=== PATIENT | male | born 1960 | race Hispanic/Latino ===

== ENCOUNTER 2016-10-27 16:52 | Emergency (ER) | payer MEDICAID ==
[2016-10-27 17:48] VITALS: BMI 28.0
[2016-10-27 17:54] VITALS: TEMP 98.2
[2016-10-27] MEDS ORDERED: Vancomycin 1gm in NS 250ml 1 GM/250 ML BAG IVPB STA (18:37)
--- NOTE | 2016-10-27 18:40 | ED PDOC ---
Arrival/HPI - General Chief Complaint: Abnormal Skin Integrity Time Seen by Provider: 10/27/16 18:37 Historian: Patient - History of Present Illness Narrative History of Present Illness (Text): 10/27/16 18:40 A 56 year old male presents to the emergency department complaining of pain, swelling and erythema to left lower extremity. Patient reports he sustained a cut on his left foot approximately 6-8 weeks ago, which has been healing poorly. Patient was seen by his PMD and has been using topical antibiotics. He later developed swelling and erythema to left lower extremity and became concerned causing him to come in for further evaluation. Patient denies any fever, chills or any other complaints. Time/Duration: Other (6-8 weeks) Symptom Course: Worsening Quality: Other Context: Home Past Medical History - Provider Review Nursing Documentation Reviewed: Yes - Infectious Disease Hx of Infectious Diseases: None - Cardiac Hx Cardiac Disorders: Yes Hx Hypertension: Yes - Pulmonary Hx Respiratory Disorders: No - Neurological Hx Neurological Disorder: No - HEENT Hx HEENT Disorder: No - Renal Hx Renal Disorder: No - Endocrine/Metabolic Hx Endocrine Disorders: No - Hematological/Oncological Hx Blood Disorders: No - Integumentary Hx Dermatological Disorder: No - Musculoskeletal/Rheumatological Hx Musculoskeletal Disorders: Yes Hx Back Pain: Yes Other/Comment: cervical spine pain. sciatica - Gastrointestinal Hx Gastrointestinal Disorders: No - Genitourinary/Gynecological Hx Genitourinary Disorders: No - Psychiatric Hx Psychophysiologic Disorder: No Hx Substance Use: No - Anesthesia Hx Anesthesia: No Hx Anesthesia Reactions: No Hx Malignant Hyperthermia: No Family/Social History - Physician Review Nursing Documentation Reviewed: Yes Family/Social History: No Known Family HX Smoking Status: Current Some Days Smoker Hx Alcohol Use: Yes Hx Substance Use: No Allergies/Home Meds Allergies/Adverse Reactions: Allergies No Known Allergies Allergy (Verified 10/27/16 17:48) Home Medications: Home Meds Medication Instructions Recorded Confirmed Lisinopril [Zestril] 40 mg PO DAILY 05/02/15 10/27/16 Metoprolol Tartrate [Lopressor] 50 mg PO DAILY 05/02/15 10/27/16 Omeprazole [Omeprazole] 1 tab PO DAILY 10/27/16 10/27/16 Physical Exam - Physical Exam Narrative Physical Exam (Text): - Review of Systems Constitutional: Normal. absent: Fatigue, Weight Change, Fevers Eyes: Normal ENT: denies sore throat, denies tristhmus Respiratory: Normal. absent: SOB, Cough, Sputum Cardiovascular: absent: Chest Pain, Palpitations, Syncope Gastrointestinal: Normal. absent: Abdominal Pain, Diarrhea, Nausea, Vomiting Genitourinary: Normal. absent: Dysuria, Frequency, Hematuria, vaginal bleeding Musculoskeletal: Normal. absent: Arthralgias, Back Pain, Neck Pain Skin: (+) Wound on left foot with pain, swelling and erythema to left lower extremity Neurological: absent: Focal Weakness Endocrine: Normal Hemo/Lymphatic: Normal Psychiatric: No suicidal or homicidal ideations Physical exam Patient appears age appropriate in no distress, speaking full sentences without difficulty - Systems Exam Head: Present: Atraumatic, Normocephalic Pupils: Present: PERRL Extroacular Muscles: Present: EOMI Conjunctiva: Present: Normal Mouth: Present: Moist Mucous Membranes Neck: Present: Normal Range of Motion. No: MIDLINE TENDERNESS, Paraspinal Tenderness Respiratory/Chest: Present: Clear to Auscultation, Good Air Exchange. No: Respiratory Distress, Accessory Muscle Use, Tachypneic Cardiovascular: Present: Regular Rate and Rhythm, Normal S1, S2, Peripheal Pulses Present. No: Murmurs Abdomen: Present: Normal Bowel Sounds. No: Tenderness, Distention, Peritoneal Signs, Rebound, Guarding Back: Present: Normal Inspection. No: Midline Tenderness, Paraspinal Tenderness Upper Extremity: Present: Normal Inspection. No: Cyanosis, Edema Lower Extremity: Present: Left lower extremity with more swelling in left ankle compared to right. Redness, Warmth and streaking up left jordan. Area demarcated with marker. Swelling with ulceration around MTP. Neurological: Present: GCS=15, Speech Normal, cranial nerves II through XII fully intact with no cerebellar abnormality, neurosensory fully intact. No focal neurological deficits. Skin: Present: Warm, Dry, Normal Color. No: Rashes Lymphatic: Present: OX3, NI, NC Psychiatric: Present: Alert, Oriented x 3, Normal Insight, Normal Concentration Vital Signs Reviewed: Yes Vital Signs Temp Pulse Resp BP Pulse Ox 10/27/16 20:19 88 16 113/78 99 10/27/16 17:53 98.2 F 108 H 19 111/75 96 Temperature: Afebrile Blood Pressure: Normal Pulse: Tachycardic Respiratory Rate: Normal Appearance: Positive for: Well-Appearing, Non-Toxic, Comfortable Pain Distress: None Mental Status: Positive for: Alert and Oriented X 3 Medical Decision Making ED Course and Treatment: 10/27/16 18:40 Impression: A 56 year old male with ulcerative wound on left foot with pain, swelling and redness to left lower extremity. Differential Diagnosis included but are not limited to: Cellulitis vs. DVT Plan: -- Duplex lower extremity ultrasound -- Labs -- Blood culture -- Toradol and Vancomycin -- Reassess and disposition Progress Notes: 10/27/16 20:05 Spoke with it technical architect, states ultrasound is negative for DVT. 10/27/16 20:06 Hb 18.5, pt has been hyperemic in the past advised to be admitted into the hospital for further w/u pt states he wants to try outpatient therapy and f/u with PMD instead Pt states he understands to return to the ER right away for new or worsening symptoms or for inability to f/u with PMD or specialist as instructed. Patient states that he fully agrees with and understands discharge instructions. States that he agrees with the plan and disposition. Verbalized and repeated discharge instructions and plan. I have given the patient opportunity to ask any additional questions. - Lab Interpretations Lab Results: 10/27/16 19:04 10/27/16 19:04 Lab Results 10/27/16 19:04: Sodium 136, Potassium 3.7, Chloride 95 L, Carbon Dioxide 29, Anion Gap 16, BUN 12, Creatinine 0.7, Est GFR ( Amer) > 60, Est GFR (Non- Af Amer) > 60, Random Glucose 142 H, Calcium 9.1, Total Bilirubin 1.6 H, AST 31 , ALT 40, Alkaline Phosphatase 120, Total Protein 8.5 H, Albumin 4.0, Globulin 4.5, Albumin/Globulin Ratio 0.9 L 10/27/16 19:04: PT 10.8, INR 1.00, APTT 33.3 H 10/27/16 19:04: WBC 8.1, RBC 4.38, Hgb 18.5 H*, Hct 51.3, MCV 117.1 H, MCH 42.2 H, MCHC 36.1, RDW 13.0, Plt Count 81 L, MPV 11.4 H, Gran % 74.6 H, Lymph % (Auto ) 13.2 L, [place] % (Auto) 10.7 H, Eos % (Auto) 1.0 L, Baso % (Auto) 0.5, Gran # 6.05, Lymph # 1.1 L, [place] # 0.9 H, Eos # 0.1, Baso # 0.04, Neutrophils % (Manual ) 72 H, Band Neutrophils % 2, Lymphocytes % (Manual) 15 L, Monocytes % (Manual) 10 H, Eosinophils % (Manual) 1, Platelet Evaluation Low, Macrocytosis (manual) 2 + I have reviewed the lab results: Yes - RAD Interpretation Radiology Orders: 10/27/16 18:38 DUPLEX LOWER EXTRM VEIN LEFT [US] Stat - Medication Orders Current Medication Orders: Discontinued Medications Vancomycin HCl (Vancomycin 1gm) 1 gm in 250 mls @ 133.333 mls/hr IVPB STAT STA PRN Reason: Protocol Stop: 10/27/16 20:29 Last Admin: 10/27/16 20:18 Dose: 133.333 mls/hr Ketorolac Tromethamine (Toradol) 15 mg IVP STAT STA Stop: 10/27/16 18:38 Last Admin: 10/27/16 20:13 Dose: 15 mg - Scribe Statement The provider has reviewed the documentation as recorded by the Tray Wyman Provider Scribe Attestation: All medical record entries made by the Scribpricila were at my direction and personally dictated by me. I have reviewed the chart and agree that the record accurately reflects my personal performance of the history, physical exam, medical decision making, and the department course for this patient. I have also personally directed, reviewed, and agree with the discharge instructions and disposition. Disposition/Present on Arrival - Present on Arrival Any Indicators Present on Arrival: No History of DVT/PE: No History of Uncontrolled Diabetes: No Urinary Catheter: No History of Decub. Ulcer: No History Surgical Site Infection Following: None - Disposition Have Diagnosis and Disposition been Completed?: Yes Diagnosis: Cellulitis Disposition: HOME/ ROUTINE Disposition Time: 20:05 Patient Plan: Discharge Patient Problems: Current Active Problems Problem Status Onset Cellulitis Acute Condition: GOOD Discharge Instructions (ExitCare): Cellulitis (ED) Print Language: MALDIVIAN Additional Instructions: PLEASE RETURN TO THE EMERGENCY DEPARTMENT FOR NEW OR WORSENING SYMPTOMS. RETURN RIGHT AWAY IF YOU CANNOT FOLLOW UP WITH YOUR PRIMARY CARE DOCTOR, CLINIC, OR SPECIALIST IN 1-2 DAYS. Prescriptions: Cephalexin [Keflex] 500 mg PO TID #21 capsule Referrals: Antonio Torres MD [Primary Care Provider] - Follow up with primary Rajani Trujillo DPM [Staff Provider] - Follow up with primary Forms: [employer] (Yoruba)
[2016-10-27 19:38] LABS: BASO # 0.04 K/mm3 (0.0-2.0); BASO % 0.5 % (0.0-3.0); EOS # 0.1 (0.0-0.7); GRAN # 6.05 (1.4-6.5); GRAN % 74.6 % (50.0-68.0); HEMATOCRIT 51.3 % (42.0-52.0); LYMPH # 1.1 (1.2-3.4); LYMPH % 13.2 % (22.0-35.0); MEAN CELL VOLUME 117.1 fl (80.0-105.0); MEAN CORPUSCULAR HEMOGLOBIN 42.2 pg (25.0-35.0); MEAN CORPUSCULAR HGB CONC 36.1 g/dl (31.0-37.0); MEAN PLATELET VOLUME 11.4 fl (7.0-11.0); MONO # 0.9 (0.1-0.6); MONO % 10.7 % (1.0-6.0); PLATELET COUNT 81 10^3/uL (120.0-450.0); WHITE BLOOD COUNT 8.1 10^3/ul (4.5-11.0)
[2016-10-27 19:44] LABS: ALB/GLOB RATIO 0.9 (1.1-1.8); ALKALINE PHOSPHATASE 120 U/L (38-126); ALT/SGPT 40 U/L (7-56); AST/SGOT 31 U/L (17-59); BILIRUBIN,TOTAL 1.6 mg/dL (0.2-1.3); BLOOD UREA NITROGEN 12 mg/dL (7-21); CALCIUM 9.1 mg/dL (8.4-10.5); CARBON DIOXIDE 29 mmol/L (21-33); CHLORIDE 95 mmol/L (98-107); GFR AFRICAN-AMERICAN > 60; GLUCOSE,RANDOM 142 mg/dL (70-110); POTASSIUM 3.7 mmol/L (3.6-5.0); SODIUM 136 mmol/L (132-148); TOTAL PROTEIN 8.5 g/dL (5.8-8.3)
[2016-10-27 19:58] LABS: PARTIAL THROMBOPLASTIN TIME 33.3 Seconds (23.7-30.8)
[2016-10-27 20:20] VITALS: RESP 16
[2016-10-27 20:22] LABS: BAND 2 % (0-2); EOSINOPHIL 1 % (0.0-3.0); NEUTROPHIL 72 % (50.0-70.0); PLATELET ESTIMATE LOW (NORMAL)
[2016-10-27 23:17] VITALS: BP 114/78; PULSE 87; O2SAT 100
--- NOTE | 2016-10-28 14:27 | US ---
PROCEDURE: Left lower extremity venous US HISTORY: Leg pain and swelling. Evaluate for DVT. PHYSICIAN(S): Campbell Lea MD. TECHNIQUE: Duplex sonography and color-flow Doppler with graded compression were used to evaluate the deep venous system of the left lower extremity. The exam is limited by edema. The tibial veins are not well seen. FINDINGS: The visualized deep venous system of the left lower extremity is sonographically normal and compressible. Normal wave forms and augmentation are seen. There is no sonographic evidence for deep venous thrombosis in the visualized segments of the left lower extremity. IMPRESSION: 1. No sonographic evidence for deep venous thrombosis in the visualized segments of the left lower extremity.
== END 2016-10-27 23:16 | disposition home or self-care (01) ==
LOC: ED 16:52
DX: L03.116 Cellulitis of left lower limb (principal)
CPT/HCPCS: 80053; 85025; 85610; 85730; 87040; 93971; 96374; 99283; J1885

== ENCOUNTER 2017-05-05 11:30 | Emergency (ER) | payer MEDICAID ==
[2017-05-05 11:40] VITALS: BMI 27.5
[2017-05-05 11:42] VITALS: RESP 18; TEMP 98
--- NOTE | 2017-05-05 11:46 | ED PDOC ---
Arrival/HPI - General Chief Complaint: ENT Problem Time Seen by Provider: 05/05/17 11:37 Historian: Patient - History of Present Illness Narrative History of Present Illness (Text): 05/05/17 11:46 This 56 yo male with pmh alcohol abuse, presents to this ED c/o nosebleed since this morning. Patient denies nose trauma, dizziness, [place], fever, or similar symptoms in the past. Patient stated he had been trying to stop nosebleed with pressure , with use of gauze, without significant success. Patient admits drinking beer last night. Patient denies trauma, dizziness, fever, dysphagia, sob, cp, or abnormal gait. Time/Duration: Other (see hpi) Context: Home Past Medical History - Provider Review Nursing Documentation Reviewed: Yes - Infectious Disease Hx of Infectious Diseases: None - Cardiac Hx Cardiac Disorders: Yes Hx Hypertension: Yes - Pulmonary Hx Respiratory Disorders: No - Neurological Hx Neurological Disorder: No - HEENT Hx HEENT Disorder: No - Renal Hx Renal Disorder: No - Endocrine/Metabolic Hx Endocrine Disorders: No - Hematological/Oncological Hx Blood Disorders: No - Integumentary Hx Dermatological Disorder: No - Musculoskeletal/Rheumatological Hx Musculoskeletal Disorders: Yes Hx Back Pain: Yes Other/Comment: cervical spine pain. sciatica - Gastrointestinal Hx Gastrointestinal Disorders: No - Genitourinary/Gynecological Hx Genitourinary Disorders: No - Psychiatric Hx Psychophysiologic Disorder: No Hx Substance Use: No - Anesthesia Hx Anesthesia: No Hx Anesthesia Reactions: No Hx Malignant Hyperthermia: No Family/Social History - Physician Review Nursing Documentation Reviewed: Yes Family/Social History: Other (noncontributory) Smoking Status: Heavy Smoker > 10 Cigarettes Daily Hx Alcohol Use: Yes Frequency of alcohol use: Socially Hx Substance Use: No Allergies/Home Meds Allergies/Adverse Reactions: Allergies No Known Allergies Allergy (Verified 10/27/16 17:48) Home Medications: Home Meds Medication Instructions Recorded Confirmed Lisinopril [Zestril] 40 mg PO DAILY 05/02/15 05/05/17 Metoprolol Tartrate [Lopressor] 50 mg PO DAILY 05/02/15 05/05/17 Omeprazole [Omeprazole] 40 mg PO DAILY 10/27/16 05/05/17 Diazepam [Valium] 10 mg PO HS 05/05/17 05/05/17 Naproxen Sodium [Naproxen Sodium 500 mg PO BID 05/05/17 05/05/17 ER] traMADol [Ultram] 1 tab PO QID PRN 05/05/17 05/05/17 Review of Systems - Review of Systems Constitutional: Normal. absent: Fatigue, Weight Change, Fevers Eyes: Normal ENT: Epistaxis Respiratory: Normal Cardiovascular: Normal Gastrointestinal: Normal Genitourinary Male: Normal Musculoskeletal: Normal Skin: Normal Neurological: Normal Endocrine: Normal Hemo/Lymphatic: Normal Psychiatric: Normal Physical Exam Vital Signs Temp Pulse Resp BP Pulse Ox 05/05/17 16:41 98 H 18 111/64 99 05/05/17 11:40 98.0 F 109 H 18 106/77 96 Temperature: Afebrile Blood Pressure: Normal Pulse: Regular Respiratory Rate: Normal Appearance: Positive for: Well-Appearing, Non-Toxic, Comfortable Pain Distress: None Mental Status: Positive for: Alert and Oriented X 3 - Systems Exam Head: Present: Atraumatic, Normocephalic Pupils: Present: PERRL Extroacular Muscles: Present: EOMI Conjunctiva: Present: Normal Mouth: Present: Moist Mucous Membranes Pharnyx: Present: Normal. No: ERYTHEMA, EXUDATE, TONSILS ENLARGED Nose (External): Present: Atraumatic Nose (Internal): Present: Epistaxis, Other (No visible septal hematoma or Foreign Body on either nostril). No: Edematous, Boggy, Rhinorrhea, Purulent Mucous, Septal Deviation, Septal Hematoma Neck: Present: Normal Range of Motion Respiratory/Chest: Present: Clear to Auscultation, Good Air Exchange. No: Respiratory Distress, Accessory Muscle Use, Wheezes Cardiovascular: Present: Regular Rate and Rhythm, Normal S1, S2. No: Murmurs Abdomen: Present: Normal Bowel Sounds. No: Tenderness, Distention, Peritoneal Signs Back: Present: Normal Inspection Upper Extremity: Present: Normal Inspection. No: Cyanosis, Edema Lower Extremity: Present: Normal Inspection. No: Edema Neurological: Present: GCS=15, CN II-XII Intact, Speech Normal Skin: Present: Warm, Dry, Normal Color. No: Rashes Psychiatric: Present: Alert, Oriented x 3, Normal Insight, Normal Concentration Medical Decision Making ED Course and Treatment: 05/05/17 12:12 Patient came c/o b/l nosebleed x 5 hours. Patient is not sure which nostril nosebleed started. Physical exam demonstrates b/l nostril full of blood, but not acute bleeding. No FB was visualized in either nostril. I recommended patient to stay in ED for observation. 05/05/17 13:05 Patient stated having another nose bleed. On revaluation, patient has been having nosebleed both nostril. Right is more than left. Rhinorocket placed on right nostril 05/05/17 16:10 Re-evaluation. Patient feels better. Discussed results and plan with patient who expresses understanding. All questions answered and there is agreement with the plan to discharge home with instructions. Patient stable for discharge. Return if symptoms persist or worsen. Patient was recommended to see Dr. Graves ENT in 1-2 days. To be complaint with antibiotic. He understood the importance to see ENT to reexamined his nose. Patient was recommended not to blow his nose, and to eat and drink cold or room temperature food or drink. To return to ED if symptoms worsen. Re-evaluation Time: 16:15 Reassessment Condition: Re-examined, Improved - Medication Orders Current Medication Orders: Discontinued Medications Cephalexin Monohydrate (Keflex) 500 mg PO STAT STA PRN Reason: Protocol Stop: 05/05/17 16:09 Multivitamins/Vitamin C 10 ml/Thiamine HCl 100 mg/ Folic Acid 1 mg/ Sodium Chloride 1,011.2 mls @ 1,000 mls/hr IV .Q1H1M ONE Stop: 05/05/17 12:46 Last Admin: 05/05/17 12:39 Dose: 1,000 mls/hr eMAR Start Stop Document 05/05/17 12:39 EQ (Rec: 05/05/17 12:40 EQ [id number]) Intravenous Solution Start Date 05/05/17 Start Time 12:39 Lorazepam (Ativan) 1 mg PO ONCE ONE PRN Reason: Protocol Stop: 05/05/17 11:48 Last Admin: 05/05/17 12:11 Dose: 1 mg Oxymetazoline HCl (Afrin 0.05%) 0 ml NS STAT STA Stop: 05/05/17 11:49 Last Admin: 05/05/17 12:12 Dose: 3 spray Comments: adm by LINNETTE Joseph Disposition/Present on Arrival - Present on Arrival Any Indicators Present on Arrival: No History of DVT/PE: No History of Uncontrolled Diabetes: No Urinary Catheter: No History of Decub. Ulcer: No History Surgical Site Infection Following: None - Disposition Have Diagnosis and Disposition been Completed?: Yes Diagnosis: Severe epistaxis Disposition: HOME/ ROUTINE Disposition Time: 16:16 Patient Plan: Discharge Condition: IMPROVED Discharge Instructions (ExitCare): Nosebleeds (DC) Additional Instructions: Call Dr. Graves ENT Office for reevaluation in 1-2 days. Take antibiotic as instructed. Do not blow nose. Drink cold or room temperature bevergae of cold or room temperature food. Return to emergency if nosebleed started again Prescriptions: Cephalexin [cephalexin] 500 mg PO QID #28 cap Referrals: Hemanth Torres MD [Primary Care Provider] - Follow up with primary Andrea Graves DO [Staff Provider] - Follow up with primary Forms: [employer] ([place]ian)
[2017-05-05] MEDS: Oxymetazoline 0.05% Nasal Spray (30 ml) NS STA (12:12)
[2017-05-05] MEDS: Multivitamin (MVI) 10 ML, Thiamine 100 MG, Folic Acid 1 MG in Sodium Chloride 0.9% 1,00... IV ONE (12:39)
[2017-05-05 16:41] VITALS: BP 111/64; PULSE 98; O2SAT 99
== END 2017-05-05 16:44 | disposition home or self-care (01) ==
LOC: ED 11:30
DX: R04.0 Epistaxis (principal)
CPT/HCPCS: 96374; 99283; J3411; J7040

== ENCOUNTER 2017-05-07 14:12 | Inpatient (IN) | payer MEDICAID ==
[2017-05-07 14:46] VITALS: BMI 28.2
--- NOTE | 2017-05-07 15:00 | ED PDOC ---
Arrival/HPI - General Chief Complaint: Dizziness/Lightheaded Time Seen by Provider: 05/07/17 15:00 Historian: Patient - History of Present Illness Narrative History of Present Illness (Text): 05/07/17 15:00 This 56 yo male presents to this Emergency department complaining of feeling tire, and right nose discomfort. Patient was seen in this Emergency department x 2 days ago for epistaxis. Patient had a rhino Rocket nasal packing placed 2 days ago, and given a prescription for ABX. Patient stated he did not get the chance to fill his antibiotics. He admits drinking alcohol daily. Patient feels generalized weakness. Patient made an appointment to see ENT, but it is for 3 days from now. Patient denies fever, sob, cp, abdominal pain, oliver, skin rash, dizziness, or abnormal gait. Time/Duration: Other (see hpi) Context: Home Past Medical History - Provider Review Nursing Documentation Reviewed: Yes - Infectious Disease Hx of Infectious Diseases: None - Cardiac Hx Cardiac Disorders: Yes Hx Hypertension: Yes - Pulmonary Hx Respiratory Disorders: No - Neurological Hx Neurological Disorder: No - HEENT Hx HEENT Disorder: No - Renal Hx Renal Disorder: No - Endocrine/Metabolic Hx Endocrine Disorders: No - Hematological/Oncological Hx Blood Disorders: No - Integumentary Hx Dermatological Disorder: No - Musculoskeletal/Rheumatological Hx Musculoskeletal Disorders: Yes Hx Back Pain: Yes Other/Comment: cervical spine pain. sciatica - Gastrointestinal Hx Gastrointestinal Disorders: No - Genitourinary/Gynecological Hx Genitourinary Disorders: No - Psychiatric Hx Psychophysiologic Disorder: No Hx Substance Use: No - Anesthesia Hx Anesthesia: No Hx Anesthesia Reactions: No Hx Malignant Hyperthermia: No Family/Social History - Physician Review Nursing Documentation Reviewed: Yes Family/Social History: Other (noncontributory) Smoking Status: Heavy Smoker > 10 Cigarettes Daily Hx Alcohol Use: Yes Hx Substance Use: No Allergies/Home Meds Allergies/Adverse Reactions: Allergies No Known Allergies Allergy (Verified 05/07/17 14:42) Home Medications: Home Meds Medication Instructions Recorded Confirmed Lisinopril [Zestril] 40 mg PO DAILY 05/02/15 05/07/17 Metoprolol Tartrate [Lopressor] 50 mg PO DAILY 05/02/15 05/07/17 Omeprazole [Omeprazole] 40 mg PO DAILY 10/27/16 05/07/17 Diazepam [Valium] 10 mg PO HS 05/05/17 05/07/17 Naproxen Sodium [Naproxen Sodium 500 mg PO BID 05/05/17 05/07/17 ER] traMADol [Ultram] 1 tab PO QID PRN 05/05/17 05/07/17 Review of Systems - Review of Systems Constitutional: Fatigue. absent: Weight Change, Fevers Eyes: Normal ENT: Other (right nares packing) Respiratory: Normal. absent: SOB, Cough Cardiovascular: Normal Gastrointestinal: Normal. absent: Abdominal Pain, Nausea, Vomiting Genitourinary Male: Normal Musculoskeletal: Normal Skin: Normal. absent: Rash Neurological: Normal. absent: Headache, Focal Weakness, Gait Changes, Speech Changes, Facial Droop, Disequilibrium, Seizure Endocrine: Normal Hemo/Lymphatic: Normal Psychiatric: Normal Physical Exam Vital Signs Temp Pulse Resp BP Pulse Ox 05/07/17 20:05 78 18 103/65 98 05/07/17 18:40 76 18 116/57 L 97 05/07/17 16:40 79 15 105/65 99 05/07/17 16:16 81 18 101/68 100 05/07/17 15:51 82 20 87/53 L 100 05/07/17 15:28 90 16 90/53 L 96 05/07/17 14:45 97.8 F 108 H 19 68/46 L 95 05/07/17 14:44 97.8 F 104 H 20 68/46 L 95 Temperature: Afebrile Blood Pressure: Normal Pulse: Tachycardic Respiratory Rate: Normal Appearance: Positive for: Well-Appearing, Non-Toxic, Comfortable Pain Distress: None Mental Status: Positive for: Alert and Oriented X 3 - Systems Exam Head: Present: Atraumatic, Normocephalic Pupils: Present: PERRL Extroacular Muscles: Present: EOMI Conjunctiva: Present: Normal Mouth: Present: Moist Mucous Membranes Pharnyx: Present: Normal. No: ERYTHEMA, EXUDATE, Muffled/Hoarse Voice Nose (External): Present: Atraumatic Nose (Internal): Present: Purulent Mucous (visualized after removing rhino rocket). No: Septal Hematoma Neck: Present: Normal Range of Motion. No: Meningeal Signs, MIDLINE TENDERNESS , Paraspinal Tenderness Respiratory/Chest: Present: Clear to Auscultation, Good Air Exchange. No: Respiratory Distress, Accessory Muscle Use, Wheezes, Retracting, Rhonchi Cardiovascular: Present: Regular Rate and Rhythm, Normal S1, S2. No: Murmurs Abdomen: Present: Normal Bowel Sounds. No: Tenderness, Distention, Peritoneal Signs, Rebound, Guarding Back: Present: Normal Inspection. No: CVA Tenderness, Midline Tenderness Upper Extremity: Present: Normal Inspection, Normal ROM, Neurovascularly Intact , Capillary Refill < 2s. No: Cyanosis, Edema Lower Extremity: Present: Normal Inspection. No: Edema Neurological: Present: GCS=15, CN II-XII Intact, Speech Normal, Motor Func Grossly Intact, Normal Sensory Function, Normal Cerebellar Funct, Gait Normal Skin: Present: Warm, Dry, Normal Color. No: Rashes Psychiatric: Present: Alert, Oriented x 3, Normal Insight, Normal Concentration Medical Decision Making ED Course and Treatment: 05/07/17 18:[address] Copeland regarding patient symptoms, with severe septis. We reviewed labs. He recommended Dr. Carrero ENT consult, and to start Rocephin IVP. Dr. Torres is aware patient recently had Unasyn. He agrees with plan for admission. Re-evaluation Time: 18:43 Reassessment Condition: Re-examined, Improving,but remains with symptoms - Lab Interpretations Lab Results: 05/07/17 15:20 05/07/17 14:30 Lab Results 05/07/17 15:20: pO2 38, VBG pH 7.46 H, VBG pCO2 46.0, VBG HCO3 32.7 H, VBG Total CO2 34.1 H, VBG O2 Sat (Calc) 79.6 H, VBG Base Excess 7.7 H, VBG Potassium 3.8, Glucose 175 H, Lactate 2.9 H, FiO2 21.0, Sodium 135.0, Chloride 95.0 L, Venous Blood Potassium 3.8 05/07/17 15:20: PT 11.6, INR 1.02, APTT 28.1 05/07/17 15:20: WBC 13.0 H D, RBC 3.71, Hgb 14.5 D, Hct 41.6 L, MCV 112.1 H D, MCH 39.1 H, MCHC 34.9, RDW 13.9, Plt Count 194, MPV 11.0, Gran % 78.4 H, Lymph % (Auto) 12.8 L, [place] % (Auto) 7.3 H, Eos % (Auto) 1.2 L, Baso % (Auto) 0.3, Gran # 10.22 H, Lymph # (Auto) 1.7, [place] # (Auto) 1.0 H, Eos # (Auto) 0.2, Baso # (Auto) 0.04, ESR 70 H 05/07/17 14:30: Sodium 136, Potassium 3.4 L, Chloride 100, Carbon Dioxide 29, Anion Gap 11, BUN 29 H, Creatinine 0.9, Est GFR ( Amer) > 60, Est GFR ( Non-Af Amer) > 60, Random Glucose 125 H, Calcium 8.2 L, Phosphorus 1.9 L, Magnesium 1.2 L, Total Bilirubin 2.0 H, AST 29, ALT 29, Alkaline Phosphatase 92 , Total Protein 6.6, Albumin 3.0, Globulin 3.7, Albumin/Globulin Ratio 0.8 L I have reviewed the lab results: Yes Interpretation: Abnormal lab values - RAD Interpretation Narrative RAD Interpretations (Text): 05/07/17 16:23 HISTORY: Sepsis Patient COMPARISON: No prior. FINDINGS: LUNGS: No active pulmonary disease. PLEURA: No significant pleural effusion identified, no pneumothorax apparent. CARDIOVASCULAR: Normal. OSSEOUS STRUCTURES: No significant abnormalities. VISUALIZED UPPER ABDOMEN: Normal. OTHER FINDINGS: None. IMPRESSION: No active disease. Radiology Orders: 05/07/17 15:00 CHEST PORTABLE [RAD] Stat - EKG Interpretation Interpreted by ED Physician: Yes (NSR @ [address] changes) Type: 12 lead EKG Comparison: No previous EKG avail. - Medication Orders Current Medication Orders: Acetaminophen (Tylenol 325mg Tab) 650 mg PO Q4H PRN PRN Reason: Fever >100.5 F Sodium Chloride (Sodium Chloride 0.9%) 1,000 mls @ 100 mls/hr IV .Q10H STA Stop: 05/08/17 04:37 Last Admin: 05/07/17 18:59 Dose: 100 mls/hr eMAR Start Stop Document 05/07/17 18:59 SRE (Rec: 05/07/17 18:59 SRE [id number]) Intravenous Solution Start Date 05/07/17 Start Time 18:59 Discontinued Medications Ampicillin Sodium/Sulbactam (Sodium 3 gm/ Sodium Chloride) 100 mls @ 100 mls/ hr IVPB STAT STA PRN Reason: Protocol Stop: 05/07/17 16:03 Last Admin: 05/07/17 15:27 Dose: 100 mls/hr eMAR Start Stop Document 05/07/17 15:27 SRE (Rec: 05/07/17 15:28 SRE [id number]) Intravenous Solution Start Date 05/07/17 Start Time 15:28 End Date 05/07/17 End time 16:30 Total Infusion Time 62 Sodium Chloride (Sodium Chloride 0.9%) 2,000 mls @ 999 mls/hr IV .Q2H1M STA Stop: 05/07/17 17:06 Last Admin: 05/07/17 15:27 Dose: 999 mls/hr eMAR Start Stop Document 05/07/17 15:27 SRE (Rec: 05/07/17 15:27 SRE [id number]) Intravenous Solution Start Date 05/07/17 Start Time 15:15 End Date 05/07/17 End time 16:15 Total Infusion Time 60 Sodium Chloride (Sodium Chloride 0.9%) 1,000 mls @ 999 mls/hr IV .Q1H1M STA Stop: 05/07/17 17:13 Last Admin: 05/07/17 16:27 Dose: 999 mls/hr eMAR Start Stop Document 05/07/17 16:27 SRE (Rec: 05/07/17 16:28 SRE [id number]) Intravenous Solution Start Date 05/07/17 Start Time 16:28 End Date 05/07/17 End time 17:30 Total Infusion Time 62 Ceftriaxone Sodium (Rocephin 1 Gram Ivpb) 1 gm in 100 mls @ 200 mls/hr IVPB STAT STA PRN Reason: Protocol Stop: 05/07/17 19:09 Last Admin: 05/07/17 18:54 Dose: 200 mls/hr eMAR Start Stop Document 05/07/17 18:54 SRE (Rec: 05/07/17 18:55 SRE [id number]) Intravenous Solution Start Date 05/07/17 Start Time 18:40 End Date 05/07/17 End time 19:20 Total Infusion Time 40 Disposition/Present on Arrival - Present on Arrival Any Indicators Present on Arrival: No History of DVT/PE: No History of Uncontrolled Diabetes: No Urinary Catheter: No History of Decub. Ulcer: No History Surgical Site Infection Following: None - Disposition Have Diagnosis and Disposition been Completed?: Yes Diagnosis: Severe sepsis, Nostril infection Disposition: HOSPITALIZED Disposition Time: 18:45 Patient Plan: Admission Patient Problems: Current Active Problems Problem Status Onset Severe sepsis Acute Nostril infection Acute Condition: STABLE
[2017-05-07] MEDS ORDERED: Sodium Chloride 0.9% 2,000 ML IV STA (15:06)
--- NOTE | 2017-05-07 15:52 | RAD ---
HISTORY: Sepsis Patient COMPARISON: No prior. FINDINGS: LUNGS: No active pulmonary disease. PLEURA: No significant pleural effusion identified, no pneumothorax apparent. CARDIOVASCULAR: Normal. OSSEOUS STRUCTURES: No significant abnormalities. VISUALIZED UPPER ABDOMEN: Normal. OTHER FINDINGS: None. IMPRESSION: No active disease.
[2017-05-07 16:05] LABS: BASO # 0.04 K/mm3 (0.0-2.0); BASO % 0.3 % (0.0-3.0); EOS # 0.2 (0.0-0.7); EOS % 1.2 % (1.5-5.0); GRAN # 10.22 (1.4-6.5); GRAN % 78.4 % (50.0-68.0); HEMOGLOBIN 14.5 g/dL (14.0-18.0); LYMPH # 1.7 (1.2-3.4); LYMPH % 12.8 % (22.0-35.0); MEAN CELL VOLUME 112.1 fl (80.0-105.0); MEAN CORPUSCULAR HEMOGLOBIN 39.1 pg (25.0-35.0); MEAN CORPUSCULAR HGB CONC 34.9 g/dl (31.0-37.0); MONO % 7.3 % (1.0-6.0); RBC 3.71 10^6/uL (3.5-6.1); RED CELL DISTRIBUTION WIDTH 13.9 % (11.5-14.5); VENOUS BLOOD GAS BASE EXCESS 7.7 mmol/L (0.0-2.0); VENOUS BLOOD GAS PO2 38 mm/Hg (30-55); VENOUS BLOOD PH 7.46 (7.32-7.43)
[2017-05-07] MEDS ORDERED: Sodium Chloride 0.9% 1,000 ML IV STA ×2 (16:13→18:38)
[2017-05-07 16:26] LABS: INR 1.02 (0.93-1.08); PARTIAL THROMBOPLASTIN TIME 28.1 Seconds (25.1-36.5); PROTHROMBIN TIME 11.6 SECONDS (9.4-12.5)
[2017-05-07 16:55] LABS: ALB/GLOB RATIO 0.8 (1.1-1.8); CALCIUM 8.2 mg/dL (8.4-10.5); GFR AFRICAN-AMERICAN > 60; GFR NON-AFRICAN AMERICAN > 60
[2017-05-07 16:56] LABS: ALT/SGPT 29 U/L (7-56); AST/SGOT 29 U/L (17-59); BLOOD UREA NITROGEN 29 mg/dL (7-21)
[2017-05-07] MEDS ORDERED: cefTRIAXone 1 gm 1 GM/100 ML BAG IVPB STA (18:40)
[2017-05-07 19:10] LABS: URINE BILIRUBIN NEGATIVE (NEGATIVE); URINE BLOOD NEGATIVE (NEGATIVE); URINE GLUCOSE (UA) NEGATIVE (NEGATIVE); URINE LEUKOCYTE ESTERASE NEGATIVE Leu/uL (NEGATIVE); URINE PROTEIN TRACE mg/dL (<30 mg/dL)
[2017-05-07 19:12] LABS: URINE APPEARANCE CLEAR (CLEAR); URINE COLOR YELLOW (YELLOW)
[2017-05-07 19:17] LABS: VENOUS BLOOD GAS BASE EXCESS 6.3 mmol/L (0.0-2.0); VENOUS BLOOD GAS PO2 43 mm/Hg (30-55); VENOUS BLOOD PH 7.41 (7.32-7.43)
[2017-05-07 19:18] LABS: URINE RBC 0 - 2 /hpf (0-2); URINE WBC 0 - 2 /hpf (0-6)
[2017-05-07] MEDS: Dextrose 5%/0.45% NS 1,000 ML IV SCH (23:35)
[2017-05-08] MEDS: Pantoprazole 40 mg EC Tab PO SCH (05:33)
[2017-05-08 07:31] LABS: BASO # 0.04 K/mm3 (0.0-2.0); BASO % 0.5 % (0.0-3.0); EOS # 0.3 (0.0-0.7); EOS % 4.1 % (1.5-5.0); GRAN # 4.3 (1.4-6.5); GRAN % 55.5 % (50.0-68.0); LYMPH # 2.4 (1.2-3.4); LYMPH % 31.4 % (22.0-35.0); MEAN CELL VOLUME 112.9 fl (80.0-105.0); MEAN CORPUSCULAR HEMOGLOBIN 38.3 pg (25.0-35.0); MEAN PLATELET VOLUME 10.2 fl (7.0-11.0); MONO # 0.7 (0.1-0.6); MONO % 8.5 % (1.0-6.0); RBC 2.87 10^6/uL (3.5-6.1); RED CELL DISTRIBUTION WIDTH 13.8 % (11.5-14.5); WHITE BLOOD COUNT 7.8 10^3/ul (4.5-11.0)
[2017-05-08 07:51] LABS: ALB/GLOB RATIO 0.8 (1.1-1.8); ALBUMIN 2.6 g/dL (3.0-4.8); ALT/SGPT 34 U/L (7-56); AST/SGOT 53 U/L (17-59); BLOOD UREA NITROGEN 19 mg/dL (7-21); CALCIUM 8.2 mg/dL (8.4-10.5); GFR AFRICAN-AMERICAN > 60; GFR NON-AFRICAN AMERICAN > 60
[2017-05-08] MEDS: Naproxen 550 mg Tab PO SCH ×2 (09:30→17:53)
[2017-05-08] MEDS: cefTRIAXone 1 gm 1 GM/100 ML BAG IVPB SCH (09:31)
--- NOTE | 2017-05-08 10:37 | CARD ---
APPROVED REPORT EKG Measurement Heart [id number] <Conclusion> Normal sinus rhythm Septal infarct, age undetermined NSSTW changes, new
[2017-05-08] MEDS: Dextrose 5%/0.45% NS 1,000 ML IV SCH (11:38)
[2017-05-08] MEDS: Oxymetazoline 0.05% Nasal Spray (30 ml) NS SCH (17:45)
[2017-05-09] MEDS: Pantoprazole 40 mg EC Tab PO SCH (05:58)
[2017-05-09] MEDS: Oxymetazoline 0.05% Nasal Spray (30 ml) NS SCH ×2 (05:59→17:44)
[2017-05-09] MEDS: cefTRIAXone 1 gm 1 GM/100 ML BAG IVPB SCH (09:32)
[2017-05-09] MEDS: Naproxen 550 mg Tab PO SCH ×2 (09:50→17:43)
[2017-05-10] MEDS: Pantoprazole 40 mg EC Tab PO SCH (06:19)
[2017-05-10 06:24] VITALS: O2SAT 99
[2017-05-10] MEDS: Oxymetazoline 0.05% Nasal Spray (30 ml) NS SCH ×2 (06:52→18:07)
[2017-05-10] MEDS: Naproxen 550 mg Tab PO SCH ×2 (09:21→18:30)
[2017-05-10] MEDS: cefTRIAXone 1 gm 1 GM/100 ML BAG IVPB SCH (09:25)
[2017-05-10 09:48] LABS: BASO # 0.05 K/mm3 (0.0-2.0); BASO % 0.9 % (0.0-3.0); EOS # 0.4 (0.0-0.7); EOS % 7.8 % (1.5-5.0); GRAN # 3.14 (1.4-6.5); GRAN % 55.4 % (50.0-68.0); LYMPH # 1.6 (1.2-3.4); LYMPH % 28.3 % (22.0-35.0); MEAN CELL VOLUME 114.4 fl (80.0-105.0); MEAN CORPUSCULAR HEMOGLOBIN 37.8 pg (25.0-35.0); MEAN PLATELET VOLUME 10.5 fl (7.0-11.0); MONO # 0.4 (0.1-0.6); MONO % 7.6 % (1.0-6.0); RBC 2.91 10^6/uL (3.5-6.1); RED CELL DISTRIBUTION WIDTH 13.1 % (11.5-14.5); WHITE BLOOD COUNT 5.7 10^3/ul (4.5-11.0)
[2017-05-10 10:00] LABS: ALB/GLOB RATIO 0.9 (1.1-1.8); ALBUMIN 3.1 g/dL (3.0-4.8); ALT/SGPT 88 U/L (7-56); AST/SGOT 90 U/L (17-59); BLOOD UREA NITROGEN 16 mg/dL (7-21); CALCIUM 9.2 mg/dL (8.4-10.5); GFR AFRICAN-AMERICAN > 60; GFR NON-AFRICAN AMERICAN > 60
[2017-05-10 12:30] VITALS: BP 98/58; PULSE 62; RESP 18; TEMP 97.5
--- NOTE | 2017-05-13 21:28 | PN ---
DATE: 05/08/2017 SUBJECTIVE: This patient is a 56-year-old male with a history of hypertension, who was admitted with epistaxis and sepsis yesterday. When seen today, he is awake, alert and oriented. He is feeling high. He did complain that his nose did bleed slightly overnight again and he is awaiting to be evaluated by ENT. Physical exam is unchanged. Vital signs are stable. LABORATORY STUDY: Shows the total bilirubin is 1.8, white blood cell count is now normal at 7.8, it was 13.0 yesterday. Hemoglobin and hematocrit are 11.0 and 32.4. His potassium is 3.4, sodium is 137, blood urea nitrogen is 19, creatinine 0.7. EKG showed regular sinus rhythm with a possible old septal infarct. Chest x-ray showed no acute disease. We are continuing to follow the patient. Hemanth Torres MD
--- NOTE | 2017-05-13 21:32 | PN ---
DATE: 05/09/2017 DAILY PROGRESS NOTE SUBJECTIVE: The patient is a 56-year-old male with a history of hypertension, who was admitted two days ago with sepsis and right-sided epistaxis. He has been treated by I.D. Today, he was seen by Dr. Carrero, who cauterized some bleeding sites in his left nostril. His white cell counts have been normalized as of yesterday. His vital signs are stable. His urine and blood cultures have both been negative. The patient is awake, alert, and oriented. His physical examination is negative; however, he does say that at night, he repeated to have nosebleeds. He relates that Dr. Carrero cauterized two areas of bleeding; however, there was a third one that he apparently could not reach safely and therefore, this was not cauterized and the patient is complaining that he is still having nosebleeds occasionally. He was reassured that this will heal and we are planning discharge to home in the morning. Hemanth Torres MD [facility]
--- NOTE | 2017-05-14 01:12 | HP ---
HISTORY OF PRESENT ILLNESS: The patient is a 56-year-old male who presents to the emergency room complaining of weakness and epistaxis. He was seen 2 days earlier for a nosebleed. A Rhino Rocket nasal packing was placed and he was given a prescription for antibiotics. However, the patient did not have a chance to get his antibiotics filled. He admits to drinking alcohol daily. Still complaining of generalized weakness and therefore returned to the emergency room with repeated nosebleeds. He apparently needs an appointment to see ENT; however, his appointment is in 3 days. He is known to have a history of hypertension. He has chronic back pain, chronic cervical spine pain. SOCIAL HISTORY: He smokes about a pack of cigarettes a day. Drinks alcohol regularly. ALLERGIES: HE HAS NO KNOWN MEDICAL ALLERGIES. MEDICATIONS: At the time of admission, he was taking lisinopril 40 mg daily, metoprolol tartrate 50 mg daily, omeprazole 40 mg daily, diazepam 10 mg at bedtime, naproxen 500 mg twice a day and tramadol 50 mg four times a day. PHYSICAL EXAMINATION: GENERAL: He is awake, alert and oriented. VITAL SIGNS: His blood pressure is 68/46, heart rate is 104. He is afebrile at 97.8 degrees Fahrenheit. HEENT: Examination of the head, eyes, ears, nose, and throat shows signs of recent nosebleed on the right. NECK: Supple with no lymphadenopathy. LUNGS: Clear to auscultation and percussion. HEART: Regular. No murmurs are appreciated. ABDOMEN: Soft, nontender with no organomegaly. EXTREMITIES: Free of cyanosis, clubbing or edema. NEUROLOGIC: The patient is intact. LABORATORY DATA: His white blood cell count is 13.0, hemoglobin and hematocrit are 14.5 and 41.6 respectively. Sodium is 136, potassium is 3.4, blood urea nitrogen is 29, creatinine 0.9, and non-fasting glucose is 128. Magnesium is low at 1.2, phosphorus is low at 1.9, and total bilirubin is 2.0. Alkaline phosphatase, AST and ALT are all normal. ASSESSMENT AND PLAN: So the patient is admitted with diagnoses of sepsis, epistaxis. Consultation from Dr. Carrero, hvac specialist, is requested and the patient will be re-evaluated in the morning. Hemanth Torres MD [facility] # [id number]
--- NOTE | 2017-05-14 06:07 | DS ---
HOSPITAL COURSE: The patient is a 56-year-old male with a history of chronic back pain, neck pain, sciatica who was admitted to [facility] three days ago with a diagnosis of sepsis and epistaxis. The patient was seen by Dr. Carrero, the Ear, Nose and Throat specialist who cauterized two sites of bleeding in his right nostril. The patient was treated with Rocephin, and his white blood cell count came down from 13; this morning it was 5.7, hemoglobin and hematocrit of 11.0 and 33.3. Serum chemistries are unremarkable. PHYSICAL EXAMINATION: VITAL SIGNS: Vital signs are stable. GENERAL: The patient when seen is awake, alert and oriented. LUNGS: Clear. HEART: Regular. ABDOMEN: Soft. There is no obvious nose bleed at this time. However, the patient continues to complain of every night during his hospital stay, there has been some nose bleeding starting up again. The patient was reassured that this could be treated as an outpatient. He is instructed to followup with Dr. Carrero post discharge. Local [facility] was called with a prescription for Keflex 500 mg, the patient to take four times a day for infection in the nares and sinuses, and the patient is discharged to home in improved condition. FINAL DIAGNOSES: 1. Sepsis. 2. Epistaxis. 3. Hypertension. 4. Alcohol abuse. 5. Tobacco abuse. Hemanth Torres MD
== END 2017-05-10 20:39 | disposition home or self-care (01) | DRG 901 ==
LOC: ED 14:12 → ERH 18:28 → 3RSO 21:35
PROVIDERS: ADMIT Internal Medicine; ATTEND Internal Medicine
DX: A41.9 Sepsis, unspecified organism (principal); R04.0 Epistaxis; F10.10 Alcohol abuse, uncomplicated; I10 Essential (primary) hypertension; G89.29 Other chronic pain; M54.9 Dorsalgia, unspecified; F17.210 Nicotine dependence, cigarettes, uncomplicated

== ENCOUNTER 2017-05-11 05:39 | Emergency (ER) | payer MEDICAID ==
[2017-05-11 05:46] VITALS: BMI 26.6
[2017-05-11 05:53] VITALS: BP 113/78; PULSE 97; RESP 17; TEMP 98; O2SAT 95
--- NOTE | 2017-05-11 06:04 | ED PDOC ---
Arrival/HPI - General Chief Complaint: ENT Problem Time Seen by Provider: 05/11/17 05:47 Historian: Patient - History of Present Illness Narrative History of Present Illness (Text): 05/11/17 06:02 A 56 year old male was brought in by EMS to the emergency department complaining of right nostril nosebleed. Patient reported to the emergency department four days ago for nosebleed, right nares infection and was admitted to the hospital. Patient was recently released from hospital as inpatient for nosebleed. Patient's nosebleed was treated, cauterized. Reports right nostril was bleeding an hour ago and couldn't stop it. Symptom Onset: Sudden Symptom Course: Unchanged Activities at Onset: Rest Context: Home Past Medical History - Provider Review Nursing Documentation Reviewed: Yes - Infectious Disease Hx of Infectious Diseases: None - Cardiac Hx Cardiac Disorders: Yes Hx Hypertension: Yes - Pulmonary Hx Respiratory Disorders: No - Neurological Hx Neurological Disorder: No - HEENT Hx HEENT Disorder: No - Renal Hx Renal Disorder: No - Endocrine/Metabolic Hx Endocrine Disorders: No - Hematological/Oncological Hx Blood Disorders: No - Integumentary Hx Dermatological Disorder: No - Musculoskeletal/Rheumatological Hx Musculoskeletal Disorders: Yes Hx Back Pain: Yes Hx Falls: No Other/Comment: cervical spine pain. sciatica - Gastrointestinal Hx Gastrointestinal Disorders: No - Genitourinary/Gynecological Hx Genitourinary Disorders: No - Psychiatric Hx Psychophysiologic Disorder: No Hx Substance Use: No - Anesthesia Hx Anesthesia: No Hx Anesthesia Reactions: No Hx Malignant Hyperthermia: No Family/Social History - Physician Review Nursing Documentation Reviewed: Yes Family/Social History: No Known Family HX Smoking Status: Light Smoker < 10 Cigarettes Daily Hx Alcohol Use: Yes Hx Substance Use: No Allergies/Home Meds Allergies/Adverse Reactions: Allergies No Known Allergies Allergy (Verified 05/11/17 05:47) Home Medications: Home Meds Medication Instructions Recorded Confirmed Lisinopril [Zestril] 40 mg PO DAILY 05/02/15 05/11/17 Metoprolol Tartrate [Lopressor] 50 mg PO DAILY 05/02/15 05/11/17 Omeprazole [Omeprazole] 40 mg PO DAILY 10/27/16 05/11/17 Diazepam [Valium] 10 mg PO HS 05/05/17 05/11/17 Naproxen Sodium [Naproxen Sodium 500 mg PO BID 05/05/17 05/11/17 ER] traMADol [Ultram] 1 tab PO QID PRN 05/05/17 05/11/17 Cephalexin [cephalexin] 500 mg PO QID 05/10/17 05/11/17 Review of Systems - Physician Review All systems were reviewed & negative as marked: Yes - Review of Systems Constitutional: absent: Fevers ENT: Other (right nostril nosebleed) Physical Exam Vital Signs Reviewed: Yes Vital Signs Temp Pulse Resp BP Pulse Ox 05/11/17 05:52 98.0 F 97 H 17 113/78 95 Temperature: Afebrile Blood Pressure: Normal Pulse: Regular Respiratory Rate: Normal Appearance: Positive for: Well-Appearing, Non-Toxic, Comfortable Pain Distress: None Mental Status: Positive for: Alert and Oriented X 3 - Systems Exam Head: Present: Atraumatic, Normocephalic Pupils: Present: PERRL Extroacular Muscles: Present: EOMI Conjunctiva: Present: Normal Mouth: Present: Moist Mucous Membranes Nose (Internal): Present: No Active Bleeding Neck: Present: Normal Range of Motion Respiratory/Chest: Present: Clear to Auscultation, Good Air Exchange. No: Respiratory Distress, Accessory Muscle Use Cardiovascular: Present: Regular Rate and Rhythm, Normal S1, S2. No: Murmurs Abdomen: Present: Normal Bowel Sounds. No: Tenderness, Distention, Peritoneal Signs Back: Present: Normal Inspection Upper Extremity: Present: Normal Inspection. No: Cyanosis, Edema Lower Extremity: Present: Normal Inspection. No: Edema Neurological: Present: GCS=15, CN II-XII Intact, Speech Normal Skin: Present: Warm, Dry, Normal Color. No: Rashes Psychiatric: Present: Alert, Oriented x 3, Normal Insight, Normal Concentration Medical Decision Making ED Course and Treatment: 05/11/17 06:01 Impression: A 56 year old male with right nostril nosebleed. Plan: -- labs -- Reassess and disposition Prior Visits: Notes and results from previous visits were reviewed. Patient was last seen in the emergency department on 05/07/17 for evaluation of right nose discomfort. Patient was admitted to the hospital for severe sepsis and nostril infection. Progress Notes: No active bleeding, patient blew out a clot. Placed a 7.5 cm anterior, posterior balloon, inflated with 8 cc, which stopped the bleeding. 05/11/17 06:38 Had to go up to 13 cc air to control the bleeding. H/H Stable Case discussed with patient's primary care doctor- [facility] FOLLOW UP WITH DANIELLE PROCTOR CANDLE MOLDER - Lab Interpretations Lab Results: 05/11/17 06:04 Lab Results 05/11/17 06:04: Blood Type Pending, Antibody Screen Pending, BBK History Checked No verified bt 05/11/17 06:04: PT 12.6 H, INR 1.09 H 05/11/17 06:04: WBC 7.2 D, RBC 3.05 L, Hgb 11.7 L, Hct 33.9 L, MCV 111.1 H D, MCH 38.4 H, MCHC 34.5, RDW 13.0, Plt Count 178, MPV 10.5, Gran % 56.1, Lymph % ( Auto) 27.6, [place] % (Auto) 7.2 H, Eos % (Auto) 8.4 H, Baso % (Auto) 0.7, Gran # 4.03, Lymph # (Auto) 2.0, [place] # (Auto) 0.5, Eos # (Auto) 0.6, Baso # (Auto) 0.05 I have reviewed the lab results: Yes - Medication Orders Current Medication Orders: Discontinued Medications Hydromorphone HCl (Dilaudid) 1 mg IVP STAT STA Stop: 05/11/17 06:19 Ondansetron HCl (Zofran Inj) 8 mg IVP STAT STA Stop: 05/11/17 06:19 - Scribe Statement The provider has reviewed the documentation as recorded by the Tray Gilliland Provider Scribe Attestation: All medical record entries made by the Tray were at my direction and personally dictated by me. I have reviewed the chart and agree that the record accurately reflects my personal performance of the history, physical exam, medical decision making, and the department course for this patient. I have also personally directed, reviewed, and agree with the discharge instructions and disposition. Disposition/Present on Arrival - Present on Arrival Any Indicators Present on Arrival: No History of DVT/PE: No History of Uncontrolled Diabetes: No Urinary Catheter: No History of Decub. Ulcer: No History Surgical Site Infection Following: None - Disposition Have Diagnosis and Disposition been Completed?: Yes Diagnosis: Epistaxis Disposition: HOME/ ROUTINE Disposition Time: 06:40 Patient Plan: Discharge Condition: GOOD Discharge Instructions (ExitCare): Nosebleeds (DC) Additional Instructions: Mr Mayers- I spoke with Dr. Torres. He wants you to see ENT in the office today. Leave the baloon in place untiil they see you in the office. If you have any problems just come back to us. Best- Dr. Srini Wang Forms: [employer] (Czech)
[2017-05-11 06:18] LABS: BASO # 0.05 K/mm3 (0.0-2.0); BASO % 0.7 % (0.0-3.0); EOS # 0.6 (0.0-0.7); EOS % 8.4 % (1.5-5.0); GRAN # 4.03 (1.4-6.5); GRAN % 56.1 % (50.0-68.0); HEMOGLOBIN 11.7 g/dL (14.0-18.0); LYMPH % 27.6 % (22.0-35.0); MEAN CORPUSCULAR HEMOGLOBIN 38.4 pg (25.0-35.0); MEAN CORPUSCULAR HGB CONC 34.5 g/dl (31.0-37.0); MEAN PLATELET VOLUME 10.5 fl (7.0-11.0); MONO # 0.5 (0.1-0.6); MONO % 7.2 % (1.0-6.0); RBC 3.05 10^6/uL (3.5-6.1); WHITE BLOOD COUNT 7.2 10^3/ul (4.5-11.0)
[2017-05-11] MEDS ORDERED: HYDROmorphone 0.5 mg/0.5 ml ISec IVP STA (06:18)
[2017-05-11 06:27] LABS: INR 1.09 (0.93-1.08); PROTHROMBIN TIME 12.6 SECONDS (9.4-12.5)
[2017-05-11 06:28] LABS: MEAN CELL VOLUME 111.1 fl (80.0-105.0)
[2017-05-11 07:11] LABS: ALB/GLOB RATIO 0.8 (1.1-1.8); ALBUMIN 3.4 g/dL (3.0-4.8); ALT/SGPT 95 U/L (7-56); AST/SGOT 90 U/L (17-59); BLOOD UREA NITROGEN 10 mg/dL (7-21); CALCIUM 9.6 mg/dL (8.4-10.5); GFR AFRICAN-AMERICAN > 60; GFR NON-AFRICAN AMERICAN > 60
== END 2017-05-11 06:15 | disposition home or self-care (01) ==
LOC: ED 05:39
DX: R04.0 Epistaxis (principal); F17.210 Nicotine dependence, cigarettes, uncomplicated; I10 Essential (primary) hypertension

== ENCOUNTER 2017-05-11 09:19 | Emergency (ER) | payer MEDICAID ==
[2017-05-11 09:25] VITALS: BMI 29.8
[2017-05-11 09:27] VITALS: RESP 18
[2017-05-11 12:42] VITALS: BP 125/87; PULSE 99; TEMP 97.9
--- NOTE | 2017-05-11 12:42 | ED PDOC ---
Arrival/HPI - General Chief Complaint: ENT Problem Time Seen by Provider: 05/11/17 09:41 - History of Present Illness Narrative History of Present Illness (Text): 56 y/o M p/w epistaxis. Patient was in this ED overnight with same complaint. Had recently been discharged from this hospital with the same complaint. Patient saw ENT while inpatient, had cauterization, had recurrent bleeding overnight, ENT who was consulted stated patient can see him in office and PMD discharged patient. Last night, patient had rhino rocket placed and case was discussed with PMD who recommended against admission and follow up with ENT in office. Patient was discharged from ED, and on the way to transport office for ride to ENT office, patient had recurrent epistaxis in lobby and was brought back to the ED. Patient's blood pressure has been stable and Hb checked overnight stable. Past Medical History - Infectious Disease Hx of Infectious Diseases: None - Cardiac Hx Cardiac Disorders: Yes Hx Hypertension: Yes - Pulmonary Hx Respiratory Disorders: No - Neurological Hx Neurological Disorder: No - HEENT Hx HEENT Disorder: No - Renal Hx Renal Disorder: No - Endocrine/Metabolic Hx Endocrine Disorders: No - Hematological/Oncological Hx Blood Disorders: No - Integumentary Hx Dermatological Disorder: No - Musculoskeletal/Rheumatological Hx Musculoskeletal Disorders: Yes Hx Back Pain: Yes Hx Falls: No Other/Comment: cervical spine pain. sciatica - Gastrointestinal Hx Gastrointestinal Disorders: No - Genitourinary/Gynecological Hx Genitourinary Disorders: No - Psychiatric Hx Psychophysiologic Disorder: No Hx Substance Use: No - Anesthesia Hx Anesthesia: No Hx Anesthesia Reactions: No Hx Malignant Hyperthermia: No Family/Social History Family/Social History: Unknown Family HX Smoking Status: Light Smoker < 10 Cigarettes Daily Hx Alcohol Use: Yes Hx Substance Use: No Allergies/Home Meds Allergies/Adverse Reactions: Allergies No Known Allergies Allergy (Verified 05/11/17 09:25) Home Medications: Home Meds Medication Instructions Recorded Confirmed Lisinopril [Zestril] 40 mg PO DAILY 05/02/15 05/11/17 Metoprolol Tartrate [Lopressor] 50 mg PO DAILY 05/02/15 05/11/17 Omeprazole [Omeprazole] 40 mg PO DAILY 10/27/16 05/11/17 Diazepam [Valium] 10 mg PO HS 05/05/17 05/11/17 Naproxen Sodium [Naproxen Sodium 500 mg PO BID 05/05/17 05/11/17 ER] traMADol [Ultram] 1 tab PO QID PRN 05/05/17 05/11/17 Cephalexin [cephalexin] 500 mg PO QID 05/10/17 05/11/17 Review of Systems - Review of Systems Cardiovascular: absent: Chest Pain Gastrointestinal: absent: Vomiting Physical Exam - Physical Exam Narrative Physical Exam (Text): Gen: NAD. Patient sitting in stretcher, occasionally spitting clots into bucket. Head: NC Eyes: No scleral icterus ENT: R nare with rhino rocket in place Neuro: Alert Vital Signs Temp Pulse Resp BP Pulse Ox 05/11/17 12:40 97.9 F 99 H 18 125/87 97 05/11/17 09:25 97.8 F 102 H 18 121/66 100 Medical Decision Making ED Course and Treatment: Patient given voucher for taxi ride directly to ENT office [address] Graves ENT senior executive compensation analyst states patient can come directly to his office now. Disposition/Present on Arrival - Present on Arrival Any Indicators Present on Arrival: No History of DVT/PE: No History of Uncontrolled Diabetes: No Urinary Catheter: No History of Decub. Ulcer: No History Surgical Site Infection Following: None - Disposition Have Diagnosis and Disposition been Completed?: Yes Diagnosis: Epistaxis Disposition: HOME/ ROUTINE Disposition Time: 12:41 Patient Plan: Discharge Patient Problems: Current Active Problems Problem Status Onset Epistaxis Acute Condition: STABLE Discharge Instructions (ExitCare): Nosebleeds Referrals: Andrea Graves DO [Staff Provider] - Follow up with primary Forms: [employer] (Nepalese)
[2017-05-11 14:00] VITALS: O2SAT 99
== END 2017-05-11 13:45 | disposition home or self-care (01) ==
LOC: ED 09:19
DX: R04.0 Epistaxis (principal); I10 Essential (primary) hypertension; F17.210 Nicotine dependence, cigarettes, uncomplicated